=== PATIENT | male | born 1980 | race Caucasian/White ===

== ENCOUNTER 2017-07-01 10:11 | Emergency (ER) | payer MEDICARE, MEDICAID ==
[2017-07-01 10:22] VITALS: BP 153/79; RESP 18; TEMP 99.6; O2SAT 98; BMI 22.9
--- NOTE | 2017-07-01 10:48 | ED PDOC ---
Arrival/HPI <Rakel Soliman - Last Filed: 07/01/17 11:29> - General Historian: Patient - History of Present Illness Time/Duration: Other (For over a year) Symptom Onset: Gradual Symptom Course: Unchanged Quality: Other (Itching) Activities at Onset: Rest, Light Context: Home <NORMA NUNEZ - Last Filed: 07/01/17 15:57> - General Chief Complaint: Abnormal Skin Integrity Time Seen by Provider: 07/01/17 10:17 - History of Present Illness Narrative History of Present Illness (Text): 07/01/17 10:52 Mr. Davis is a 37 year old male with a past medical history significant for upper extremity rash who presented to the [facility] ED for upper extremity rash and associated itching. Patient reports that he has had this rash for over a year now but that he is presenting today because it has been itching more than it has in the past. He reports that the increased itching began "a few days ago" with no inciting event. The rash is limited to his bilateral upper extremities with no other locations reported. He reports that he hasn't tried anything at home for the itching. He reports that he was seen in the [facility] ED for this rash one year ago and was given medication that helped resolve his symptoms. He denies any fever, chills, headaches, changes in his vision, ear pain, tinnitus, epistaxis, rhinorrhea, SOB, cough, wheezing, chest pain, palpitations, abdominal pain, N/V, diarrhea, constipation, polydipsia, polyuria, pain with urination, hematuria, penile rash/discharge or any numbness/tingling/weakness. He also denies any bug bites, new laundry detergent, soaps or lotions and reports that he is living with his cousin, who does not have this rash. (NORMA NUNEZ) Past Medical History - Provider Review Nursing Documentation Reviewed: Yes - Travel History Have you recently traveled outside [place] w/in the past 3 mons?: No - Past History Past History: No Previous - Infectious Disease Hx of Infectious Diseases: None - Tetanus Immunization Tetanus Immunization: Unknown - Psychiatric Hx Substance Use: No - Suicidal Assessment Feels Threatened In Home Enviroment: No <NORMA NUNEZ - Last Filed: 07/01/17 15:57> Family/Social History - Physician Review Nursing Documentation Reviewed: Yes Family/Social History: Unknown Family HX Smoking Status: Light Smoker < 10 Cigarettes Daily Hx Alcohol Use: No Hx Substance Use: No <NORMA NUNEZ - Last Filed: 07/01/17 15:57> Allergies/Home Meds <Rakel Soliman - Last Filed: 07/01/17 11:29> <NORMA NUNEZ - Last Filed: 07/01/17 15:57> Allergies/Adverse Reactions: Allergies No Known Allergies Allergy (Verified 07/01/17 10:27) Review of Systems - Physician Review All systems were reviewed & negative as marked: Yes - Review of Systems Constitutional: Normal. absent: Fevers, Night Sweats Eyes: Normal. absent: Vision Changes ENT: Normal. absent: Sore Throat, Rhinorrhea, Sinus Congestion Respiratory: Normal. absent: SOB, Cough, Wheezing Cardiovascular: Normal. absent: Chest Pain, Palpitations Gastrointestinal: Normal. absent: Abdominal Pain, Constipation, Diarrhea, Nausea, Vomiting Genitourinary Male: Normal. absent: Dysuria, Hematuria Musculoskeletal: Normal. absent: Arthralgias, Back Pain, Neck Pain, Joint Swelling Skin: Rash (itchy rash distributed over bilateral upper extremities). absent: Normal Neurological: Normal. absent: Headache, Dizziness Endocrine: Normal. absent: Polyuria, Polydipsia Hemo/Lymphatic: Normal. absent: Easy Bleeding, Easy Bruising Psychiatric: absent: Normal, Depression, Suicidal Ideation <NORMA NUNEZ - Last Filed: 07/01/17 15:57> Physical Exam Vital Signs Reviewed: Yes Temperature: Afebrile Blood Pressure: Normal Pulse: Regular Respiratory Rate: Normal Appearance: Positive for: Well-Appearing, Non-Toxic, Comfortable Pain Distress: None Mental Status: Positive for: Alert and Oriented X 3 - Systems Exam Head: Present: Atraumatic, Normocephalic Pupils: Present: PERRL Extroacular Muscles: Present: EOMI Conjunctiva: Present: Normal Mouth: Present: Moist Mucous Membranes, Normal Lips, Normal Tounge, Normal Teeth Pharnyx: Present: Normal. No: ERYTHEMA, EXUDATE, TONSILS ENLARGED Nose (External): Present: Atraumatic Nose (Internal): Present: Normal Inspection, No Active Bleeding. No: Clear Mucous, Rhinorrhea, Purulent Mucous Neck: Present: Normal Range of Motion, Trachea Midline. No: Meningeal Signs, MIDLINE TENDERNESS, Paraspinal Tenderness, JVD, Lymphadenopathy Respiratory/Chest: Present: Clear to Auscultation, Good Air Exchange. No: Respiratory Distress, Accessory Muscle Use, Wheezes, Decreased Breath Sounds, Rales, Rhonchi, Tachypneic, Tender to Palpation Cardiovascular: Present: Regular Rate and Rhythm, Normal S1, S2, Peripheal Pulses Present. No: Murmurs, Irregular Rhythm, Tachycardic, Bradycardic Abdomen: Present: Normal Bowel Sounds, Peritoneal Signs. No: Tenderness, Distention Back: Present: Normal Inspection. No: CVA Tenderness, Midline Tenderness, Paraspinal Tenderness Upper Extremity: Present: Normal ROM, NORMAL PULSES, Neurovascularly Intact, Capillary Refill < 2s. No: Normal Inspection, Cyanosis, Edema Lower Extremity: Present: Normal Inspection, Edema, NORMAL PULSES, Normal ROM, Capillary Refill < 2 s. No: CALF TENDERNESS Neurological: Present: GCS=15, CN II-XII Intact, Speech Normal Skin: Present: Warm, Dry, Rashes (Scattered excoriations with erythematous bases in various stages of healing in linear distributions with few pustules on bilateral upper extremities sparing the palms). No: Normal Color, Abscess Lymphatic: No: Cervical Adenopathy Psychiatric: Present: Alert, Oriented x 3, Normal Insight, Normal Concentration <NORMA NUNEZ - Last Filed: 07/01/17 15:57> Vital Signs Temp Pulse Resp BP Pulse Ox 07/01/17 11:26 79 18 153/79 H 07/01/17 10:21 99.6 F 78 18 153/79 H 98 Medical Decision Making <Rakel Soliman - Last Filed: 07/01/17 11:29> <NORMA NUNEZ - Last Filed: 07/01/17 15:57> ED Course and Treatment: Patient Seen With Resident: In agreement with resident note which contains more details about the patient. Patient was seen and evaluated with resident. Came up with plan and treatment together. Patient seen and examined with medical typist. Patient examined by me and plan reviewed with resident. On exam, patient reports rash for over one year. Denies fevers. Denies sore throat. Denies chest pain or shortness of breath. Denies cough. He is a smoker. Counseled on risks. On exam, no fluctuant masses, no urticaria or angioedema noted. Patient with no joint swelling or streaking or cellulitis. He has not been compliant with follow-up in past, but states his treatment from previous visit in 2016 was effective. Will rx Mupiricon and Triamcinolone, advised follow-up with dermatology and clinic. He denies hx of drug abuse or unprotected sex. Denies fevers. Denies groin rash. (Rakel Soliman) 07/01/17 11:02 Impression: 37 year old male with a past medical history significant for upper extremity rash who presented to the [facility] ED for upper extremity rash and associated itching Plan: -Dermatology referral -Mupirocin and Triamcinolone ointments -Request to follow up with PCP/[facility] Prior visits: All results and reports from previous visits were reviewed. 12/18/15: Patient was seen for bilateral arm rash and was discharged home with Mupiricon and Triamcinolone ointments (NORMA NUNEZ) - Scribe Statement The provider has reviewed the documentation as recorded by the Scribe <Rakel Soliman - Last Filed: 07/01/17 11:29> <NORMA NUNEZ - Last Filed: 07/01/17 15:57> - Scribe Statement Priscilla Parrish Provider Scribe Attestation: All medical record entries made by the Scribe were at my direction and personally dictated by me. I have reviewed the chart and agree that the record accurately reflects my personal performance of the history, physical exam, medical decision making, and the department course for this patient. I have also personally directed, reviewed, and agree with the discharge instructions and disposition. (Rakel Soliman) Disposition/Present on Arrival <Rakel Soliman - Last Filed: 07/01/17 11:29> - Present on Arrival Any Indicators Present on Arrival: No History of DVT/PE: No History of Uncontrolled Diabetes: No Urinary Catheter: No History of Decub. Ulcer: No History Surgical Site Infection Following: None - Disposition Have Diagnosis and Disposition been Completed?: Yes Disposition Time: 11:07 <NORMA NUNEZ - Last Filed: 07/01/17 15:57> - Disposition Diagnosis: Rash Disposition: HOME/ ROUTINE Condition: GOOD Discharge Instructions (ExitCare): Acute Rash (ED) Additional Instructions: Mr. Davis, thank you for letting us take care of you today. Your provider was Dr. Kemp. You were treated for rash and itching The emergency medical care you received today was directed at your acute symptoms. If you were prescribed any medication, please fill it and take as directed. It may take several days for your symptoms to resolve. Return to the Emergency Department if your symptoms worsen, do not improve, or if you have any other problems. Please contact your doctor or call one of the physicians/clinics you have been referred to that are listed on the Patient Visit Information form that is included in your discharge packet. Bring any paperwork you were given at discharge with you along with any medications you are taking to your follow up visit. Our treatment cannot replace ongoing medical care by a primary care provider (PCP) outside of the emergency department. PLEASE FOLLOW UP WITH [facility] OR YOUR PRIMARY CARE DOCTOR WITHIN ONE WEEK PLEASE SCHEDULE AN APPOINTMENT WITH THE GLUE CLAMP OPERATOR WHO WAS REFERRED TO YOU TODAY, DR. GALEAS. TO SCHEDULE AN APPOINTMENT PLEASE CALL [phone]. Thank you for allowing the [facility] team to be part of your care today. Prescriptions: Mupirocin 2% Ointment [Bactroban Ointment] 22 applic TOP BID #1 tube Triamcinolone 0.1% [Triamcinolone 0.1% Oint] 0.1 % TP BID #1 tube Referrals: Reji Galeas MD [Staff Provider] - Follow up with primary [facility] at [facility] [Outside] - Follow up with primary Forms: [employer] (Estonian)
[2017-07-01 11:29] VITALS: PULSE 79
== END 2017-07-01 11:29 | disposition home or self-care (01) ==
LOC: ED 10:11
DX: R21 Rash and other nonspecific skin eruption (principal)

== ENCOUNTER 2017-07-15 13:38 | Emergency (ER) | payer MEDICARE, MEDICAID ==
[2017-07-15 13:38] VITALS: BMI 22.9
[2017-07-15 13:51] VITALS: RESP 16; TEMP 99
--- NOTE | 2017-07-15 14:41 | ED PDOC ---
Arrival/HPI - General Chief Complaint: Abnormal Skin Integrity Time Seen by Provider: 07/15/17 13:42 Historian: Patient - History of Present Illness Narrative History of Present Illness (Text): 07/15/17 14:36 This 37 yo male presents to this ED c/o upper extremity rash x 2 week. Patient stated rash is chronic for last 2-3 years. Rash is intermittent, and pruritic. Patient denies other complains. Time/Duration: Other (2 weeks) Context: Home Past Medical History - Provider Review Nursing Documentation Reviewed: Yes - Past History Past History: No Previous - Infectious Disease Hx of Infectious Diseases: None - Tetanus Immunization Tetanus Immunization: Unknown - Psychiatric Hx Substance Use: No - Suicidal Assessment Feels Threatened In Home Enviroment: No Family/Social History - Physician Review Nursing Documentation Reviewed: Yes Family/Social History: Other (Noncontributory) Smoking Status: Light Smoker < 10 Cigarettes Daily Hx Alcohol Use: No Hx Substance Use: No Allergies/Home Meds Allergies/Adverse Reactions: Allergies No Known Allergies Allergy (Verified 07/01/17 10:27) Review of Systems - Review of Systems Constitutional: Normal. absent: Fatigue, Weight Change, Fevers Eyes: Normal ENT: Normal Respiratory: Normal. absent: SOB, Cough, Wheezing Cardiovascular: Normal. absent: Chest Pain, Palpitations Gastrointestinal: Normal. absent: Abdominal Pain, Nausea, Vomiting Genitourinary Male: Normal Musculoskeletal: Normal Skin: Rash, Pruritis Neurological: Normal Endocrine: Normal Hemo/Lymphatic: Normal Psychiatric: Normal Physical Exam Vital Signs Temp Pulse Resp BP Pulse Ox 07/15/17 13:47 99 F 75 16 149/83 99 Temperature: Afebrile Blood Pressure: Normal Pulse: Regular Respiratory Rate: Normal Appearance: Positive for: Well-Appearing, Non-Toxic, Comfortable Pain Distress: None Mental Status: Positive for: Alert and Oriented X 3 - Systems Exam Head: Present: Atraumatic, Normocephalic Pupils: Present: PERRL Extroacular Muscles: Present: EOMI Conjunctiva: Present: Normal Mouth: Present: Moist Mucous Membranes Neck: Present: Normal Range of Motion Respiratory/Chest: Present: Clear to Auscultation, Good Air Exchange. No: Respiratory Distress, Accessory Muscle Use Cardiovascular: Present: Regular Rate and Rhythm, Normal S1, S2. No: Murmurs Abdomen: Present: Normal Bowel Sounds. No: Tenderness, Distention, Peritoneal Signs Back: Present: Normal Inspection Upper Extremity: Present: Normal Inspection. No: Cyanosis, Edema Lower Extremity: Present: Normal Inspection. No: Edema Neurological: Present: GCS=15, CN II-XII Intact, Speech Normal Skin: Present: Warm, Dry, Rashes, Normal Color. No: Erythematous, Induration, Hot, Abscess Psychiatric: Present: Alert, Oriented x 3, Normal Insight, Normal Concentration Medical Decision Making ED Course and Treatment: 07/15/17 14:40 Patient came c/o rash x 2 week. Patient has been scratching rash. Patient denies fever, sob, or wheezing. Patient admits similar symptoms in the past. Patient is requesting an injection of "steroid", since this seems to work for his rash. Patient denies other complains. I reviewed risk of steroid like Decadron with patient which not only but also include AVN, osteoporosis, glaucoma, DM, renal failure, liver failure, or worsening of rash. He still requested to have Steroid injection. Re-evaluation Time: 14:47 Reassessment Condition: Re-examined, Improved Disposition/Present on Arrival - Present on Arrival Any Indicators Present on Arrival: No History of DVT/PE: No History of Uncontrolled Diabetes: No Urinary Catheter: No History of Decub. Ulcer: No History Surgical Site Infection Following: None - Disposition Have Diagnosis and Disposition been Completed?: Yes Diagnosis: Rash and nonspecific skin eruption Disposition: HOME/ ROUTINE Disposition Time: 14:51 Patient Plan: Discharge Patient Problems: Current Active Problems Problem Status Onset Rash and nonspecific skin eruption Acute Condition: GOOD Discharge Instructions (ExitCare): Acute Rash (ED) Additional Instructions: Call private doctor for follow up visit in 1-2 days. Take medication as instructed with food. medication could make you feel drowsy, sleepy, so do not drive or operate machinery. Return to emergency if symptoms worsen. Prescriptions: Doxycycline Monohydrate 100 mg PO BID #14 tablet Famotidine [Pepcid] 40 mg PO DAILY #10 tablet Hydroxyzine Pamoate [Vistaril] 25 mg PO Q6H PRN #30 capsule PRN Reason: Itching / Pruritus Referrals: Shaik Ingram MD [Primary Care Provider] - Follow up with primary
[2017-07-16 00:24] VITALS: BP 140/76; PULSE 90; O2SAT 100
== END 2017-07-15 15:45 | disposition home or self-care (01) ==
LOC: ED 13:38
DX: R21 Rash and other nonspecific skin eruption (principal); F17.210 Nicotine dependence, cigarettes, uncomplicated
CPT/HCPCS: 96372; 99283; J1100; Q0177

== ENCOUNTER 2019-02-19 10:37 | Emergency (ER) | payer MEDICARE, MEDICAID ==
[2019-02-19 10:37] VITALS: BMI 22.9
[2019-02-19] MEDS ORDERED: Sodium Chloride 0.9% 1,000 ML IV STA (10:55)
--- NOTE | 2019-02-19 10:55 | ED PDOC ---
Arrival/HPI - General Chief Complaint: Abdominal Pain Time Seen by Provider: 02/19/19 10:47 Historian: Patient - History of Present Illness Narrative History of Present Illness (Text): 02/19/19 11:05 38 year old male, with no significant past medical history, who presents to the emergency department complaining of left sided abdominal pain x 1 week. Patient denies any nausea, vomiting, diarrhea, dysuria, or any other somatic complaints. Patient endorses smoking (1ppd). Time/Duration: 1 week Symptom Onset: Gradual Symptom Course: Unchanged Activities at Onset: Light Context: Home Past Medical History - Provider Review Nursing Documentation Reviewed: Yes - Past History Past History: No Previous - Infectious Disease Hx of Infectious Diseases: None - Tetanus Immunization Tetanus Immunization: Unknown - Psychiatric Hx Substance Use: No - Suicidal Assessment Feels Threatened In Home Enviroment: No Family/Social History - Physician Review Nursing Documentation Reviewed: Yes Family/Social History: Unknown Family HX Smoking Status: Light Smoker < 10 Cigarettes Daily Hx Alcohol Use: No Hx Substance Use: No Allergies/Home Meds Allergies/Adverse Reactions: Allergies No Known Allergies Allergy (Verified 02/19/19 10:43) Review of Systems - Physician Review All systems were reviewed & negative as marked: Yes - Review of Systems Gastrointestinal: Abdominal Pain. absent: Diarrhea, Nausea, Vomiting Genitourinary Male: absent: Dysuria Physical Exam Vital Signs Reviewed: Yes Vital Signs Temp Pulse Resp BP Pulse Ox 02/19/19 10:41 98.5 F 79 18 138/99 H 99 Temperature: Afebrile Blood Pressure: Normal Pulse: Regular Respiratory Rate: Normal Appearance: Positive for: Well-Appearing, Non-Toxic, Comfortable Pain Distress: None Mental Status: Positive for: Alert and Oriented X 3 - Systems Exam Head: Present: Atraumatic, Normocephalic Pupils: Present: PERRL Extroacular Muscles: Present: EOMI Conjunctiva: Present: Normal Mouth: Present: Moist Mucous Membranes Neck: Present: Normal Range of Motion Respiratory/Chest: Present: Clear to Auscultation, Good Air Exchange. No: Respiratory Distress, Accessory Muscle Use Cardiovascular: Present: Regular Rate and Rhythm, Normal S1, S2. No: Murmurs Abdomen: Present: Tenderness (Tenderness to Palpation on left upper quadrant and left lower quadrant. ), Other (soft). No: Distention, Peritoneal Signs Back: Present: Normal Inspection Upper Extremity: Present: Normal Inspection. No: Cyanosis, Edema Lower Extremity: Present: Normal Inspection. No: Edema Neurological: Present: GCS=15, CN II-XII Intact, Speech Normal Skin: Present: Warm, Dry, Normal Color. No: Rashes Psychiatric: Present: Alert, Oriented x 3, Normal Insight, Normal Concentration Medical Decision Making ED Course and Treatment: 02/19/19 11:02 Impression: 38 year old male presents to the emergency department complaining of left sided abdominal pain x 1 week. Plan: -- CT abdomen and pelvis -- Labs -- Toradol -- Reassess and disposition Prior Visits: Notes and results from previous visits were reviewed. Progress Notes: 02/19/19 14:43 Patient reports he is feeling better, CT is normal, no sign of diverticulitis, Patient will be discharged. - RAD Interpretation Narrative RAD Interpretations (Text): 02/19/19 14:26 CT abdomen and pelvis reviewed by radiologist, shows: No acute intra-abdominal findings Bench Worker Helper: Radiologist - Scribe Statement The provider has reviewed the documentation as recorded by the Altaibivania Crawford All medical record entries made by the Altaibe were at my direction and personally dictated by me. I have reviewed the chart and agree that the record accurately reflects my personal performance of the history, physical exam, medical decision making, and the department course for this patient. I have also personally directed, reviewed, and agree with the discharge instructions and disposition. Disposition/Present on Arrival - Present on Arrival Any Indicators Present on Arrival: No History of DVT/PE: No History of Uncontrolled Diabetes: No Urinary Catheter: No History of Decub. Ulcer: No History Surgical Site Infection Following: None - Disposition Have Diagnosis and Disposition been Completed?: Yes Diagnosis: Abdominal pain Disposition: HOME/ ROUTINE Disposition Time: 14:49 Patient Plan: Discharge Condition: IMPROVED Discharge Instructions (ExitCare): Acute Abdomen (Belly Pain) Additional Instructions: Follow up with your pcp in a few days and take motrin for pain as needed. Prescriptions: Ibuprofen [Motrin] 600 mg PO Q6 #20 tab Forms: [employer] (Erit[place]an)
[2019-02-19] MEDS ORDERED: Iohexol 240 (50 ml) ONE (11:03)
[2019-02-19] MEDS ORDERED: Iohexol 350 MG/100 ML VIAL ONE (11:14)
[2019-02-19 11:29] LABS: BASO # 0.05 K/mm3 (0.0-2.0); BASO % 0.8 % (0.0-3.0); EOS # 0.5 (0.0-0.7); EOS % 8.6 % (1.5-5.0); HEMOGLOBIN 14.2 g/dL (14.0-18.0); LYMPH % 31.1 % (22.0-35.0); MEAN CELL VOLUME 89.1 fl (80.0-105.0); MEAN CORPUSCULAR HEMOGLOBIN 30.4 pg (25.0-35.0); MEAN CORPUSCULAR HGB CONC 34.1 g/dl (31.0-37.0); MEAN PLATELET VOLUME 10.3 fl (7.0-11.0); MONO # 0.4 (0.1-0.6); RBC 4.67 10^6/uL (3.5-6.1); WHITE BLOOD COUNT 6.3 10^3/uL (4.5-11.0)
[2019-02-19 11:38] LABS: INR 1.08; PARTIAL THROMBOPLASTIN TIME 34.9 Seconds (26.9-38.3); PROTHROMBIN TIME 12.2 SECONDS (9.4-12.5)
[2019-02-19 12:00] LABS: ALB/GLOB RATIO 1.5 (1.1-1.8); ALBUMIN 3.8 g/dL (3.0-4.8); ALT/SGPT 40 U/L (7-56); AST/SGOT 32 U/L (17-59); BLOOD UREA NITROGEN 15 mg/dL (7-21); CALCIUM 8.4 mg/dL (8.4-10.5); GFR NON-AFRICAN AMERICAN > 60; LIPASE 58 U/L (23-300)
--- NOTE | 2019-02-19 13:55 | CT ---
Date of service: 02/19/2019 PROCEDURE: CT Abdomen and Pelvis with contrast HISTORY: r/o Diverticulitis COMPARISON: None. TECHNIQUE: Contrast dose: Radiation dose: Total exam DLP = 813.89 mGy-cm. This CT exam was performed using one or more of the following dose reduction techniques: Automated exposure control, adjustment of the mA and/or kV according to patient size, and/or use of iterative reconstruction technique. FINDINGS: LOWER THORAX: Unremarkable. LIVER: Unremarkable. No gross lesion or ductal dilatation. GALLBLADDER AND BILE DUCTS: Unremarkable. PANCREAS: Unremarkable. No gross lesion or ductal dilatation. SPLEEN: Unremarkable. ADRENALS: Unremarkable. No mass. KIDNEYS AND URETERS: Unremarkable. No hydronephrosis. No solid mass. VASCULATURE: Unremarkable. No aortic aneurysm. No aortic atherosclerotic calcification or mural plaque present. BOWEL: Unremarkable. No obstruction. No gross mural thickening. APPENDIX: Normal appendix. PERITONEUM: Unremarkable. No free fluid. No free air. LYMPH NODES: Unremarkable. No enlarged lymph nodes. BLADDER: Unremarkable. REPRODUCTIVE: Unremarkable. BONES: No acute fracture. OTHER FINDINGS: None. IMPRESSION: No acute intra-abdominal findings
[2019-02-19 14:49] VITALS: PULSE 80; RESP 19; TEMP 98
[2019-02-19 14:50] VITALS: BP 132/80; O2SAT 99
== END 2019-02-19 14:53 | disposition home or self-care (01) ==
LOC: ED 10:37
DX: R10.9 Unspecified abdominal pain (principal)
CPT/HCPCS: 74177; 80053; 83690; 83735; 85025; 85610; 85730; 96374; 99283; J1885; J7030; Q9966; Q9967